=== PATIENT | male | born 1985 | race Caucasian/White ===

== ENCOUNTER 2016-07-26 14:40 | Emergency (ER) | payer MEDICAID, OTHER ==
[~2016-07-26] VITALS: Ht 177.8 cm; Wt 88.5 kg
[2016-07-26 14:41] VITALS: BP 136/95; PULSE 108; RESP 17; TEMP 98.2; O2SAT 99
[2016-07-26] MEDS ORDERED: ZITHTAB PO (16:20)
--- NOTE | 2016-07-26 16:22 | PD ---
HPI Chief Complaint: Cold / Flu Symptoms Time Seen by Provider: 16:17 Travel History International Travel<30 days: No Contact w/Intl Traveler<30days: No Traveled to known affect area: No History of Present Illness HPI 30-year-old male presents to the emergency department for evaluation of cold symptoms that been ongoing for 3 weeks. Patient reports congestion, cough. He states he believes he has run a fever, but has not checked his temperature. No abdominal pain. No vomiting. He states he has intermittent shortness of breath. Patient reports history of asthma as a child. He states his children were recently diagnosed with RSV and he started with the symptoms soon after. He reports no chronic medical problems and taking no prescribed medications. He denies any other complaints. [facility] Past Medical History Medical History: Denies Significant Hx Past Surgical History Appendectomy: Yes Social History Alcohol Use: Yes (social) Tobacco Use: Yes (dip) Substance Use: No Allergies-Medications (Allergen,Severity, Reaction): Coded Allergies: Ultram (Verified Allergy, Severe, ITCHING, 07/26/16) Review of Systems Except as stated in HPI: all other systems reviewed are Neg Physical Exam Narrative GENERAL: Well-nourished, well-developed male patient ambulatory. Afebrile. SKIN: Focused skin assessment warm/dry. HEAD: Normocephalic. Atraumatic. ENT: Mucosa pink and moist. No erythema or exudates. No uvular edema. No uvular , palatal, or tonsillar deviation. Airway patent. Nasal turbinates appear normal without nasal blood, purulent drainage or septal hematoma. Bilateral tympanic membranes are clear without erythema or perforation. EYES: No scleral icterus. No injection or drainage. NECK: Supple, trachea midline. No JVD or lymphadenopathy. CARDIOVASCULAR: Regular rate and rhythm without murmurs, gallops, or rubs. RESPIRATORY: Breath sounds equal bilaterally. No accessory muscle use. Lungs sounds are clear to auscultation throughout GASTROINTESTINAL: Abdomen soft, non-tender, nondistended. MUSCULOSKELETAL: No cyanosis, or edema. Data Data Last Documented VS Vital Signs Date Time Temp Pulse Resp B/P Pulse Ox O2 Delivery O2 Flow Rate FiO2 07/26/16 14:41 98.2 108 17 136/95 99 MDM Medical Decision Making Medical Screen Exam Complete: Yes Emergency Medical Condition: Yes Medical Record Reviewed: Yes Differential Diagnosis URI versus influenza versus pneumonia versus bronchitis Narrative Course 30-year-old male presents to the emergency department for evaluation of cold symptoms for 3 days. Patient will be discharged prescription for azithromycin. He is encouraged to follow-up with a primary care physician. He is to return here for any acute worsening of symptoms. Patient verbalizes agreement and understanding. The patient was discharged in stable condition with instructions, including return instructions and follow up instructions. Diagnosis Primary Impression: Bronchitis Referrals: Primary Care Physician call for appointment Patient Instructions: Acute Bronchitis (ED), General Instructions Additional Instructions: Take antibiotic as instructed until gone. Rest. Drink plenty of fluids. Tylenol/ibuprofen as needed. Follow-up with your primary care physician. Return to the emergency department for any acute worsening of symptoms. Med/Other Pt SpecificInfo: Prescription(s) given Scripts Azithromycin (Zithromax Z-Bobby)250 Mg Rems610 Mg PO DIRECTED #1 DSPK Ref 0 500 MG (2 tabs) day 1, then 1 tab days 2-5. Prov:Kristy Flynn 07/26/16 Disposition: 01 DISCHARGE HOME Condition: Stable Kristy Flynn Jul 26, 2016 16:21
== END 2016-07-26 16:31 | disposition home or self-care (01) ==
LOC: NEPB 14:40
DX: J40 Bronchitis, not specified as acute or chronic (principal); F17.290 Nicotine dependence, other tobacco product, uncomplicated
CPT/HCPCS: 99283